=== PATIENT | female | born 1945 | race Caucasian/White ===

== ENCOUNTER 2017-12-08 12:19 | Outpatient (CLI) | payer MEDICARE ==
[~2017-12-08 12:19] MED LIST: Magnevist 469MG/ML 20 ML VIAL ONE
--- NOTE | 2017-12-08 14:05 | MRI ---
MRI BRAIN WITH AND WITHOUT IV CONTRAST: Date: 12/08/17 HISTORY: Meningioma, memory loss, confusion. No history of brain surgery. COMPARISON: None. FINDINGS: No evidence of infarct, hemorrhage, mass, midline shift, or abnormal extra-axial fluid collections ar e seen. No abnormal postcontrast enhancement is identified. No restricted diffusion is noted. No sign ificant abnormalities are seen on the highly sensitive FLAIR images, except for a few scattered tiny foci of T2 prolongation in the periventricular and subcortical white matter. Ventricular size is appr opriate and the basilar cisterns are patent. The visualized paranasal sinuses and mastoid air cells a re well aerated. IMPRESSION: No significant abnormalities are identified. This study was interpreted in consultation with Dr. Jean Carlos Mota (neuroradiologist), who concurs. POS: PARMJIT
== END 2017-12-08 12:20 | disposition home or self-care (01) ==
LOC: SCSMRI 12:19
PROVIDERS: ATTEND Psychiatry & Neurology Neurology
DX: D32.9 Benign neoplasm of meninges, unspecified (principal)
CPT/HCPCS: 70553; A9579

== ENCOUNTER 2018-05-04 10:17 | Outpatient (CLI) | payer MEDICARE | END 2018-05-04 10:18 | disposition home or self-care (01) | LOC: BICMAMMO 10:17 | PROVIDERS: ATTEND Obstetrics & Gynecology | DX: Z12.31 Encounter for screening mammogram for malignant neoplasm of breast (principal) | CPT/HCPCS: 77063; 77067 ==

== ENCOUNTER 2019-05-15 09:40 | Outpatient (CLI) | payer MEDICARE ==
--- NOTE | 2019-05-15 11:10 | MMO ---
Bilateral MAMMO Bilat Screen [facility]. CLINICAL HISTORY: Patient is 73 years old and is seen for screening. The patient has no family history of breast cancer. VIEWS: The views performed were: bilateral craniocaudal with tomosynthesis and bilateral mediolateral oblique with tomosynthesis. FILMS COMPARED: The present examination has been compared to prior imaging studies performed at [facility] on 01/21/2015, 03/22/2016, 05/02/2017 and 05/04/2018. MAMMOGRAM FINDINGS: There are scattered fibroglandular densities. There are no suspicious masses, suspicious calcifications, or new areas of architectural distortion. IMPRESSION: THERE IS NO MAMMOGRAPHIC EVIDENCE OF MALIGNANCY. A ROUTINE FOLLOW-UP MAMMOGRAM IN 1 YEAR IS RECOMMENDED. THE RESULTS OF THIS EXAM WERE SENT TO THE PATIENT. ACR BI-RADS Category 1 - Negative MAMMOGRAPHY NOTE: 1. A negative mammogram report should not delay a biopsy if a dominant of clinically suspicious mass is present. 2. Approximately 10% to 15% of breast cancers are not detected by mammography. 3. Adenosis and dense breasts may obscure an underlying neoplasm. Reported by: ANJELICA NGO MD Electonically Signed: [id number]
== END 2019-05-15 09:41 | disposition home or self-care (01) ==
LOC: BICMAMMO 09:40
PROVIDERS: ATTEND Obstetrics & Gynecology
DX: Z12.31 Encounter for screening mammogram for malignant neoplasm of breast (principal)
CPT/HCPCS: 77063; 77067

== ENCOUNTER 2020-07-23 09:09 | Outpatient (CLI) | payer MEDICARE ==
--- NOTE | 2020-07-23 10:18 | MMO ---
Bilateral MAMMO Bilat Screen [facility]. CLINICAL HISTORY: Patient is 74 years old and is seen for screening. The patient has no family history of breast cancer. The patient has a history of Skin cancer. VIEWS: The views performed were: bilateral craniocaudal with tomosynthesis and bilateral mediolateral oblique with tomosynthesis. FILMS COMPARED: The present examination has been compared to prior imaging studies performed at [facility] on 03/22/2016, 05/02/2017, 05/04/2018 and 05/15/2019. This study has been interpreted with the assistance of computer-aided detection. MAMMOGRAM FINDINGS: There are scattered fibroglandular densities. Finding 1: There are stable benign appearing calcifications seen in both breasts. Finding 2: There are stable benign appearing densities seen in both breasts. There are no suspicious masses, suspicious calcifications, or new areas of architectural distortion. IMPRESSION: THERE IS NO MAMMOGRAPHIC EVIDENCE OF MALIGNANCY. A ROUTINE FOLLOW-UP MAMMOGRAM IN 1 YEAR IS RECOMMENDED. THE RESULTS OF THIS EXAM WERE SENT TO THE PATIENT. ACR BI-RADS Category 2 - Benign finding MAMMOGRAPHY NOTE: 1. A negative mammogram report should not delay a biopsy if a dominant of clinically suspicious mass is present. 2. Approximately 10% to 15% of breast cancers are not detected by mammography. 3. Adenosis and dense breasts may obscure an underlying neoplasm. Reported by: CHAR HENNESSY MD Electonically Signed: [id number]
== END 2020-07-23 09:10 | disposition home or self-care (01) ==
LOC: BICMAMMO 09:09
PROVIDERS: ATTEND Obstetrics & Gynecology
DX: Z12.31 Encounter for screening mammogram for malignant neoplasm of breast (principal); Z85.828 Personal history of other malignant neoplasm of skin
CPT/HCPCS: 77063; 77067

== ENCOUNTER 2020-11-26 09:49 | Outpatient (CLI) | payer MEDICARE ==
--- NOTE | 2020-11-26 11:47 | CT ---
CHEST CT WITH CONTRAST ABDOMEN WITH CONTRAST PELVIC CT WITH CONTRAST: HISTORY: Weight loss. Left lower quadrant pain. Correlation: None. COMPARISON: None. FINDINGS: Chest CT: Mediastinum: No mass, lymphadenopathy or hematoma. Aorta: Normal caliber. No periaortic fat stranding. Heart: Normal heart size. No significant pericardial fluid. Trachea and central bronchi: Patent. Pleural spaces: No effusion. Right lung: No mass, consolidation or nodules. Left lung:No mass, consolidation or nodules. Pneumothorax: None. Abdomen CT: Gallbladder: Not appreciated and is presumed to be surgically absent. Portal vein: Patent. Liver: Appropriate enhancement. Spleen: Appropriate enhancement. Pancreas: Appropriate enhancement. Adrenal glands: Appropriate enhancement. Lymphadenopathy: No gastrohepatic, retrocrural or periportal lymphadenopathy. Kidneys: Hypodensity in the right renal cortex, too small to characterize. Symmetric enhancement of t he kidneys. No obstructive uropathy. Mesentery: No mass, lymphadenopathy, free air or free fluid. Alimentary canal: Multiple normal caliber small bowel loops. Normal ileocecal junction. Appendix is n ot appreciated. No obvious inflammation of the cecal apex. This contrast and fecal material in a nondistended, nondilated colon. Pelvis CT: Unremarkable urinary bladder. Presacral fat is preserved. Adnexal structures and uterus are grossly unremarkable. No pelvic mass, lymphadenopathy, free air or fluid. Osseous structures:There are no lytic or blastic lesions within the osseous structures. IMPRESSION: 1. No evidence of a malignant process in the chest, abdomen or pelvis. 2. No evidence of a bowel obstruction. Normal ileocecal junction. Appendix is not appreciated. No obv ious inflammation of the cecal apex. 3. No masses or consolidation within the lung parenchyma. Transcribed Date/Time: 11/26/2020 1:09 PM
[2020-11-26] MEDS ORDERED: Iopamidol 370 76% 100 ML VIAL ONE (14:18)
== END 2020-11-26 09:50 | disposition home or self-care (01) ==
LOC: BICCT 09:49
PROVIDERS: ATTEND Physician Assistant Medical
DX: K52.839 Microscopic colitis, unspecified (principal); R63.4 Abnormal weight loss; R10.12 Left upper quadrant pain
CPT/HCPCS: 71260; 74177; Q9967

== ENCOUNTER 2022-11-15 11:07 | Outpatient (CLI) | payer MEDICARE | END 2022-11-15 11:08 | disposition home or self-care (01) | LOC: BICMAMMO 11:07 | PROVIDERS: ATTEND Family Medicine | DX: Z12.31 Encounter for screening mammogram for malignant neoplasm of breast (principal); Z85.828 Personal history of other malignant neoplasm of skin | CPT/HCPCS: 77063; 77067 ==

== ENCOUNTER 2023-09-30 10:40 | Outpatient (CLI) | payer MEDICARE | END 2023-09-30 10:41 | disposition home or self-care (01) | LOC: MRI 10:40 | PROVIDERS: ATTEND Family Medicine | DX: R41.3 Other amnesia (principal); R90.89 Other abnormal findings on diagnostic imaging of central nervous system | CPT/HCPCS: 70551 ==

== ENCOUNTER 2024-05-02 11:45 | Outpatient (CLI) | payer MEDICARE | END 2024-05-02 11:46 | disposition home or self-care (01) | LOC: BICMAMMO 11:45 | PROVIDERS: ATTEND Family Medicine | DX: Z12.31 Encounter for screening mammogram for malignant neoplasm of breast (principal); N63.10 Unspecified lump in the right breast, unspecified quadrant; Z85.828 Personal history of other malignant neoplasm of skin | CPT/HCPCS: 77063; 77067 ==